=== PATIENT | male | born 1945 | race Caucasian/White ===

== ENCOUNTER 2020-10-31 12:00 | Outpatient (RCR) | payer MEDICARE ==
[~2020-10-31] VITALS: Ht 182.9 cm; Wt 90.8 kg
[2020-10-31] MEDS ORDERED: PRAV10TA PO (14:27)
[2020-10-31] MEDS ORDERED: FINA5TAB6 PO (14:27)
[2020-10-31] MEDS ORDERED: ASPI-999 PO (14:27)
[2020-10-31] MEDS ORDERED: LEVO50CA4 PO (14:27)
[2020-10-31] MEDS ORDERED: TMSL.4C PO (14:27)
[2020-10-31] MEDS ORDERED: DIPH-581 PO (14:27)
[2020-10-31] MEDS ORDERED: GABA300S2 PO (14:27)
== END 2020-10-31 15:00 | disposition home or self-care (01) ==
LOC: PREOP 12:00
PROVIDERS: ATTEND Urology
DX: Z01.818 Encounter for other preprocedural examination (principal); N43.3 Hydrocele, unspecified; N40.0 Benign prostatic hyperplasia without lower urinary tract symptoms; N45.2 Orchitis

== ENCOUNTER 2020-11-06 07:04 | Day surgery (SDC) | payer MEDICARE, OTHER ==
[2020-11-06] VITALS (10 sets, daily range): BP systolic 144–181; BP diastolic 84–97
[~2020-11-06] VITALS: Ht 182.9 cm; Wt 90.8 kg
[~2020-11-06 07:04] MED LIST: ASPI-999 PO; DIPH-581 PO; FINA5TAB6 PO; GABA300S2 PO; LEVO50CA4 PO; PRAV10TA PO; TMSL.4C PO
[2020-11-06] MEDS ORDERED: LEVOFLOXACIN 250 MG/50 ML IVPB 50 ML IV ONE (07:30)
[2020-11-06] MEDS: LACTATED RINGERS 1,000 ML IV PRN ×2 (07:43→09:43)
--- NOTE | 2020-11-06 08:10 | Progress Note-Pre Operative ---
Pre-Operative Progress Note H&P Reviewed The H&P was reviewed, patient examined and no changes noted. Date Seen by Provider: Nov 06, 2020 Time Seen by Provider: 08:09 Date H&P Reviewed: Nov 06, 2020 Time H&P Reviewed: 08:09 Pre-Operative Diagnosis: LT HYDROCELE, LT ORCHITIS AND BPH MOUNA VIEIRA MD Nov 06, 2020 08:10
[2020-11-06] MEDS ORDERED: proPOfol 200 MG/20 ML (DIPRIVAN) VIAL IV ONE (08:19)
[2020-11-06] MEDS ORDERED: fentaNYL INJECTION 100 MCG/2 ML AMP ONE (08:19)
[2020-11-06] MEDS ORDERED: ONDANSETRON 4 MG/2 ML (SDV) Z0FRAN ONE (08:19)
[2020-11-06] MEDS ORDERED: LIDOCAINE PF 2% 5 ML (XYLOCAINE) VIAL ONE (08:19)
[2020-11-06] MEDS ORDERED: SEVOFLURANE (ULTANE) 15 ML INHAL SOLN ONE ×3 (08:20→09:26)
[2020-11-06] MEDS ORDERED: ROCURONIUM 10 MG/ML 5 ML SYRINGE IV ONE (08:26)
[2020-11-06] MEDS ORDERED: NEOSTIGMINE 3 MG/3 ML VIAL ONE (08:59)
[2020-11-06] MEDS ORDERED: GLYCOPYRROLATE 0.2 MG/ML (ROBINUL) 2 ML VIAL ONE (08:59)
--- NOTE | 2020-11-06 09:48 | Progress Note-Post Operative ---
Post-Operative Progess Note Surgeon (s)/Consulting Sme (s) Surgeon MOUNA VIEIRA MD Consulting Sme: NONE Pre-Operative Diagnosis LT HYDROCELE, LT ORCHITIS AND BPH Post-Operative Diagnosis SAME AND LT SPERMATOCELE Procedure & Operative Findings Date of Procedure 11/06/20 Procedure Performed/Findings CYSTOSCOPY, EXCISION OF LT HYDROCELE AND SPERMATOCELE AND LT ORCHIECTOMY Anesthesia Type GENERAL Estimated Blood Loss Estimated blood loss (mL): LESS THAN 50 cc Specimens/Packing Specimens Removed LT TESTIS, EPIDIDYMIS, SPERMATIC CORD, HYDROCELE AND SPERMATOCELE Packin/4" JASON DRAIN MOUNA VIEIRA MD Nov 06, 2020 09:48
--- NOTE | 2020-11-06 09:55 | Discharge Inst-Urology ---
Discharge Inst-Urology Reconcile Patient Problems Problems Reviewed?: Yes Final Diagnosis BPH, LT HYDROCELE, SPERMATOCELE AND ORCHITIS Patient Instructions/Follow Up Plan/Assessment/Instructions Please make appointment to been seen in office in 2 weeks. Rest till then Office tomorrow 9am to DC drain then can start showers, no bath Keep bowels soft and moving Scrotal support for one week Ice to scrotum in RR and then at home for 6 hours and then PRN Increase oral fluids for 48 hours and then as needed. Diet and Activity as tolerated. If questions or concerns contact your physician Or seek help at emergency department. MOUNA VIEIRA MD Nov 06, 2020 09:55
[2020-11-06] MEDS ORDERED: MEPERIDINE (DEMEROL) INJ 50 MG/ML IVP ONE (10:00)
[2020-11-06] MEDS ORDERED: PROMETHAZINE INJ 25 MG/ML (PHENERGAN) AMP IVP ONE (10:00)
[2020-11-06] MEDS ORDERED: morphine INJ 10 MG/ML 1ML (SYR OR VIAL) IVP ONE (10:00)
[2020-11-06] MEDS ORDERED: ONDANSETRON 4 MG/2 ML (SDV) Z0FRAN IVP PRN (10:00)
[2020-11-06] MEDS ORDERED: CEPH500C PO (11:49)
[2020-11-06] MEDS ORDERED: TRM50T PO (11:49)
--- NOTE | 2020-11-06 12:18 | Anesthesia-General Post-Op ---
General Patient Condition Mental Status/LOC: Same as Preop Cardiovascular: Satisfactory Nausea/Vomiting: Absent Respiratory: Satisfactory Pain: Controlled Complications: Absent Post Op Complications Complications None Follow Up Care/Instructions Patient Instructions None needed. Anesthesia/Patient Condition Patient Condition Patient is doing well, no complaints, stable vital signs, no apparent adverse anesthesia problems. No complications reported per nursing. ABIEL CHRISTIE CRNA Nov 06, 2020 12:18
--- NOTE | 2020-11-06 12:38 | OPERATIVE REPORT ---
DATE OF SERVICE: 11/06/2020 PREOPERATIVE DIAGNOSES: Left hydrocele, left orchitis and BPH. POSTOPERATIVE DIAGNOSES: Left hydrocele, left orchitis, BPH, and left spermatocele. OPERATION PERFORMED: Cystoscopy, excision of left hydrocele, spermatocele, and left orchiectomy. SURGEON: Mouna Vieira MD ANESTHESIA: General. COMPLICATIONS: None. DESCRIPTION OF PROCEDURE: Under satisfactory general anesthesia, the patient in supine position, the abdomen, genitalia and thigh were prepped and draped in the usual sterile fashion. Flexible cystoscope was introduced under vision. The anterior urethra was normal. The prostate revealed enlargement with the lateral lobe meeting in the midline causing complete bladder neck obstruction. Bladder was entered and revealed 2+ trabeculations, no foreign body, bladder tumor or stone visualized. Ureteric orifices with clear effluxes. Cystoscopy was confirmed in an antegrade fashion and the cystoscope was removed. The patient tolerated the procedure well. Then, he was prepped and draped in the usual sterile fashion again for the open surgery. An incision was made in the medial raphae of the scrotum, carried through the left scrotal compartment. Bleeders were cauterized as dissection was proceeding. The testicle, large hydrocele and spermatocele was delivered. The testicle was small and not very healthy with history of orchitis and wish of the patient to have it out, also the possibility of recurrence of both hydrocele and/or spermatocele and more symptoms if we just repair, went ahead and decided to remove and clean the whole thing, so the spermatic cord was clamped between and suture ligated on two sites with 0 chromic catgut, the vas separately and tied with 0 chromic. Hemostasis was complete. The testicle, epididymis, spermatic cord, hydrocele and spermatocele were sent to pathology intact. Hemostasis was adequate. I still elected to leave a Selena drain, so a quarter of an inch Selena drain was brought through a separate stab wound at the bottom of the scrotum secured in position with a 3-0 chromic catgut. Closure was performed in layers, the dartos with running 3-0 chromic catgut and the skin was interrupted 4-0 Vicryl. Telfa, fluffs and scrotal support was applied. Needle, sponge, instrument count correct x2. ESTIMATED BLOOD LOSS: Less than 50 mL, none of which was replaced. The patient tolerated the procedure and anesthesia well and was sent to recovery room in stable condition. Job ID: [id number] DocumentID: [id number] Dictated Date: 11/06/2020 09:51:46 Blood Bank Supervisor Date: 11/06/2020 12:37:30 Dictated By: MOUNA VIEIRA MD
== END 2020-11-06 12:20 | disposition home or self-care (01) ==
LOC: SDC 07:04
PROVIDERS: ATTEND Urology
DX: N43.3 Hydrocele, unspecified (principal); N45.2 Orchitis; N43.40 Spermatocele of epididymis, unspecified; N40.0 Benign prostatic hyperplasia without lower urinary tract symptoms; Z88.0 Allergy status to penicillin
CPT/HCPCS: 87081; 88302; 88304; 88305